=== PATIENT | male | born 1950 | race Caucasian/White ===

== ENCOUNTER → 2016-05-31 | Outpatient (CLI) | payer MEDICARE, OTHER ==
[~2016-05-31] MED LIST: FLAGYL500 MG PO; FLEXERIL10 MG PO; IBUPROFEN200 M1 PO; LEVAQUIN750 MG PO; LISINOPRIL20 MG PO; OMEPRAZOLE40 M1 PO; PERCOCET 5/31 TABLET PO; PRILOSEC40 MG PO
== END | disposition home or self-care (01) ==
LOC: CDC 08:27
DX: I49.9 Cardiac arrhythmia, unspecified (principal)
CPT/HCPCS: 93000